=== PATIENT | female | born 1955 | race Caucasian/White ===

== ENCOUNTER → 2020-03-29 | Outpatient (CLI) | payer OTHER ==
[2020-03-29 08:16] LABS: CREATININE 0.9 mg/dL (0.6-1.3)
[2020-03-29 09:39] VITALS: BP 136/61
[2020-03-29 09:56] VITALS: BP 126/57
[2020-03-29 10:12] VITALS: BP 148/55
[2020-03-29 10:31] VITALS: BP 152/52
[2020-03-29 10:44] VITALS: BP 140/86
== END ==
LOC: M.LAB 07:43 → M.CT 09:00
PROVIDERS: ATTEND Internal Medicine
DX: Z01.812 Encounter for preprocedural laboratory examination (principal); Z01.810 Encounter for preprocedural cardiovascular examination; K44.9 Diaphragmatic hernia without obstruction or gangrene; I25.10 Atherosclerotic heart disease of native coronary artery without angina pectoris; R94.39 Abnormal result of other cardiovascular function study